=== PATIENT | male | born 1985 | race American Indian/Alaskan Native ===

== ENCOUNTER 2019-07-13 09:25 | Inpatient (IN) | payer MEDICARE ==
--- NOTE | 2019-07-13 09:10 | Event Note ---
Date: 07/13/19 Mr. Liriano arrived in preop for scheduled outpatient AVF placement. Upon arrival, he reported that he injured his left (nonoperative) elbow while pushing himself up out of the bathtub this morning. On exam, the left elbow is warm with significant swelling and possible fluid collection, with tenderness to palpation along the medial/posterior aspect of the joint. Flexion and extension ROM are restricted 2/2 pain. He denies head or other injury. He expressed concern that he would have difficulty with ADLs after surgery. Surgeon made aware and gave orders to send patient to ED for further evaluation and treatment of left arm injury. Surgery will be rescheduled.
[~2019-07-13 09:25] MED LIST: SODIUM CHLORIDE 0.9% 1000 ML 1,000 ML ONE; ceFAZolin/Water 2 GM/20 ML 2 GM/20 ML SYRINGE IV NR
[2019-07-13] MEDS ORDERED: ONDANSETRON 4 MG/2 ML INJ IV ONE (10:50)
[2019-07-13] MEDS ORDERED: MORPHINE 2 MG/1 ML INJ IV ONE ×2 (10:50→18:32)
[2019-07-13] MEDS ORDERED: VANCOMYCIN PHARMACY TO DOSE IV SCH (11:00)
--- NOTE | 2019-07-13 11:00 | Emergency Department Report ---
ED General Adult HPI - General Chief complaint: Extremity Injury, Upper Time Seen by Provider: 07/13/19 10:28 Source: patient, family, RN notes reviewed Mode of arrival: Stretcher Limitations: No Limitations - History of Present Illness Initial comments: 34-year-old male was sent from outpatient surgery for evaluation. He was scheduled to have an AV fistula placed. He has a permacath since January. He was transferred to the emergency department because he was found to have a warm, mass-like area of his left elbow. He states he felt a pop when he was getting out of the bathroom this morning. The swelling of his elbow has been there for several months or longer. He states he has never consulted a physician regarding this. Other than feeling the pop this morning he has no history of elbow trauma/injury. He denies a history of gout or other types of arthritis. He refers no other swollen joint area. He also denies fever or chills. He states that the elbow became more painful this morning after experiencing the "pop". The patient was sent from outpatient surgery for further evaluation. -: Gradual, month(s), year(s) Location: left (elbow) - Related Data Home Medications Medication Instructions Recorded Confirmed Last Taken Cardizem CD 300 mg PO DAILY 07/13/19 07/13/19 Unknown Cinacalcet 30 mg PO DAILY 07/13/19 07/13/19 Unknown Metoprolol Tartrate 100 mg PO DAILY 07/13/19 07/13/19 Unknown Sevelamer Carbonate 800 mg PO TID 07/13/19 07/13/19 Unknown Allergies Allergy/AdvReac Type Severity Reaction Status Date / Time No Known Allergies Allergy Unverified 07/09/19 16:30 ED Review of Systems ROS: Stated complaint: Other details as noted in HPI Constitutional: denies: chills, fever Eyes: denies: eye pain, eye discharge, vision change ENT: denies: ear pain, throat pain Respiratory: shortness of breath. denies: cough, wheezing Cardiovascular: denies: chest pain, palpitations Endocrine: no symptoms reported Gastrointestinal: denies: abdominal pain, nausea, diarrhea Genitourinary: denies: urgency, dysuria Musculoskeletal: as per HPI, joint swelling (elbow swelling). denies: back pain, arthralgia Skin: denies: rash, lesions Neurological: denies: headache, weakness, paresthesias Psychiatric: denies: anxiety, depression Hematological/Lymphatic: denies: easy bleeding, easy bruising ED Past Medical Hx - Past Medical History Previous Medical History?: Yes Hx Hypertension: Yes Hx Renal Disease: Yes Hx Headaches / Migraines: Yes - Surgical History Additional Surgical History: permacath - Social History Smoking Status: Former Smoker Substance Use Type: None - Medications Home Medications: Home Medications Medication Instructions Recorded Confirmed Last Taken Type Cardizem CD 300 mg PO DAILY 07/13/19 07/13/19 Unknown History Cinacalcet 30 mg PO DAILY 07/13/19 07/13/19 Unknown History Metoprolol Tartrate 100 mg PO DAILY 07/13/19 07/13/19 Unknown History Sevelamer Carbonate 800 mg PO TID 07/13/19 07/13/19 Unknown History ED Physical Exam - General Limitations: No Limitations General appearance: alert, in no apparent distress - Head Head exam: Present: atraumatic, normocephalic - Eye Eye exam: Present: normal appearance. Absent: scleral icterus - ENT ENT exam: Present: mucous membranes moist - Neck Neck exam: Present: normal inspection - Respiratory Respiratory exam: Present: normal lung sounds bilaterally. Absent: respiratory distress - Cardiovascular Cardiovascular Exam: Present: regular rate, normal rhythm. Absent: systolic murmur, diastolic murmur, rubs, gallop - GI/Abdominal GI/Abdominal exam: Present: soft, normal bowel sounds. Absent: distended, tenderness, guarding, rebound, rigid - Rectal Rectal exam: Present: deferred - Extremities Exam Extremities exam: Present: other (she has a firm soft tissue mass of the left elbow which does not appear to be in the olecranon bursa nor the joint. There is overlying erythema and warmth. There may be a slight degree of fluid colle ction but it is not grossly fluctuant.) - Back Exam Back exam: Present: normal inspection - Neurological Exam Neurological exam: Present: alert, oriented X3, CN II-XII intact. Absent: motor sensory deficit - Psychiatric Psychiatric exam: Present: normal affect, normal mood - Skin Skin exam: Present: warm, dry, intact, normal color. Absent: rash ED Course Vital Signs 07/13/19 07/13/19 07/13/19 08:38 08:40 09:20 Temperature 98.8 F 98.8 F Pulse Rate 97 H 97 H 98 H Respiratory 20 20 10 L Rate Blood Pressure 140/108 140/108 Blood Pressure [Right] O2 Sat by Pulse 99 99 Oximetry 07/13/19 07/13/19 07/13/19 09:30 09:45 10:00 Temperature Pulse Rate 98 H 100 H 101 H Respiratory 11 L 16 10 L Rate Blood Pressure 143/94 150/105 150/105 Blood Pressure [Right] O2 Sat by Pulse 99 99 98 Oximetry 07/13/19 07/13/19 07/13/19 10:07 10:15 10:30 Temperature 98.3 F Pulse Rate 98 H 103 H 101 H Respiratory 18 14 14 Rate Blood Pressure 143/94 157/102 157/102 Blood Pressure [Right] O2 Sat by Pulse 100 97 96 Oximetry 07/13/19 07/13/19 07/13/19 10:45 11:00 11:26 Temperature Pulse Rate 102 H 103 H Respiratory 15 10 L 18 Rate Blood Pressure 149/103 149/103 Blood Pressure [Right] O2 Sat by Pulse 96 Oximetry 07/13/19 07/13/19 07/13/19 11:38 12:14 12:16 Temperature Pulse Rate 103 H Respiratory 18 Rate Blood Pressure 147/86 Blood Pressure 157/115 [Right] O2 Sat by Pulse 99 94 94 Oximetry - Reevaluation(s) Reevaluation #1: Patient was given IV vancomycin. He is found to have a lactic acid level mildly elevated at 2.1. Blood cultures were obtained. He is referred to the hospitalist service for further care and evaluation. He was also found to have a questionable right upper lobe infiltrate, CHF and possibly an infected tophus of his left elbow. 07/13/19 12:59 Reevaluation #2: Lab notified of the delay in processing the previously ordered CBC and BMP. This was reordered and I called the lab. Patient will receive vancomycin and cefepime. 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 Other etiologies are certainly possible. The radiologist also has queried a right upper lobe infiltrate. I have consult wit h the employee placement specialist validation leader as the patient sees a employee placement specialist at [place]. His last dialysis was yesterday. He is resting comfortably. Patient is referred to the hospitalist Dr. Read for further care and evaluation. 07/13/19 13:10 ED Medical Decision Making - Lab Data Result diagrams: 07/13/19 Unknown Laboratory Results - last 24 hr 07/13/19 07/13/19 07/13/19 12:06 12:06 12:06 PT 15.3 H INR 1.19 H APTT 38.3 H Lactic Acid 2.10 H* Magnesium 1.90 Total Bilirubin 0.60 Direct Bilirubin 0.3 H Indirect Bilirubin 0.3 AST 18 ALT 11 Alkaline Phosphatase 241 H Total Protein 8.0 Albumin 3.2 L Albumin/Globulin Ratio 0.7 Laboratory Results - last 24 hr 07/13/19 07/13/19 07/13/19 12:06 12:06 12:06 PT 15.3 H INR 1.19 H APTT 38.3 H Lactic Acid 2.10 H* Magnesium 1.90 Total Bilirubin 0.60 Direct Bilirubin 0.3 H Indirect Bilirubin 0.3 AST 18 ALT 11 Alkaline Phosphatase 241 H Total Protein 8.0 Albumin 3.2 L Albumin/Globulin Ratio 0.7 - Radiology Data IMPRESSION: Cardiomegaly and pulmonary venous congestion. Possible right upper lobe infiltrate. Signer Name: Richmond Crawley Jr, MD Signed: 07/13/2019 11:26 AM Workstation Name: [id number] EFT ELBOW 3 VIEWS INDICATION: pain swelling. COMPARISON: None. IMPRESSION: There is a large amorphous soft tissue calcification posterior to the olecranon measuring up to 6 x 4 cm. The bony structures are intact with no significant degenerative changes. No fracture or large joint effusion is suggested. Tophaceous gout Chronic calcific olecranon bursitis Critical care attestation.: If time is entered above; I have spent that time in minutes in the direct care of this critically ill patient, excluding procedure time. ED Disposition Clinical Impression: Soft tissue infection, End-stage renal disease needing dialysis, Right upper lobe pulmonary infiltrate Congestive heart failure Qualifiers: Heart failure type: other Qualified Code(s): I50.9 - Heart failure, unspecified Disposition: - OP ADMIT IP TO THIS HOSP Is pt being admited?: Yes Does the pt Need Aspirin: Yes Condition: Stable Referrals: PRIMARY CARE, [Primary Care Provider] - 3-5 Days Time of Disposition: 13:12
--- NOTE | 2019-07-13 11:33 | XRay Report ---
CHEST 1 VIEW INDICATION: pain swelling. COMPARISON: None FINDINGS: Support devices: Right IJ venous catheter terminates in the right atrium. Heart: Cardiomegaly. Lungs/Pleura: Mild central pulmonary venous congestion. There is subtle hazy opacity in the lateral r ight upper lobe which could represent a developing infiltrate or focal edema. 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 IMPRESSION: Cardiomegaly and pulmonary venous congestion. Possible right upper lobe infiltrate. Signer Name: Richmond Crawley Jr, MD Signed: 07/13/2019 11:26 AM Workstation Name: [id number] EFT ELBOW 3 VIEWS INDICATION: pain swelling. COMPARISON: None. IMPRESSION: There is a large amorphous soft tissue calcification posterior to the olecranon measurin g up to 6 x 4 cm. The bony structures are intact with no significant degenerative changes. No fractur e or large joint effusion is suggested. Tophaceous gout Chronic calcific olecranon bursitis Signer Name: Richmond Crawley Jr, MD Signed: 07/13/2019 11:28 AM Workstation Name: [id number]
--- NOTE | 2019-07-13 11:33 | XRay Report ---
CHEST 1 VIEW INDICATION: pain swelling. COMPARISON: None FINDINGS: Support devices: Right IJ venous catheter terminates in the right atrium. Heart: Cardiomegaly. Lungs/Pleura: Mild central pulmonary venous congestion. There is subtle hazy opacity in the lateral r ight upper lobe which could represent a developing infiltrate or focal edema. 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 IMPRESSION: Cardiomegaly and pulmonary venous congestion. Possible right upper lobe infiltrate. Signer Name: Richmond Crawley Jr, MD Signed: 07/13/2019 11:26 AM Workstation Name: [id number] EFT ELBOW 3 VIEWS INDICATION: pain swelling. COMPARISON: None. IMPRESSION: There is a large amorphous soft tissue calcification posterior to the olecranon measurin g up to 6 x 4 cm. The bony structures are intact with no significant degenerative changes. No fractur e or large joint effusion is suggested. Tophaceous gout Chronic calcific olecranon bursitis Signer Name: Richmond Crawley Jr, MD Signed: 07/13/2019 11:28 AM Workstation Name: [id number]
[2019-07-13] MEDS ORDERED: diphenhydrAMINE 50 MG/ML VIAL ONE (11:34)
[2019-07-13] MEDS ORDERED: VANCOMYCIN 1,750 MG in SODIUM CHLORIDE 0.9% 500 ML 500 ML IV ONE (12:00)
[2019-07-13 12:29] LABS: INR 1.19 (0.87-1.13); Partial Thromboplastin Time 38.3 Sec. (24.2-36.6)
[2019-07-13 12:48] LABS: Alanine Aminotransferase 11 units/L (7-56); Albumin 3.2 g/dL (3.9-5); Bilirubin,Direct 0.3 mg/dL (0-0.2)
[2019-07-13 13:07] LABS: Calcium 10.8 mg/dL (8.4-10.2)
[2019-07-13] MEDS ORDERED: CEFEPIME/NS 1 GM/100 ML 1 GM/100 ML BAG IV ONE (13:09)
[2019-07-13 13:50] LABS: Basophils % (Auto) 0.7 % (0.0-1.8); Eosinophils % (Auto) 0.2 % (0.0-4.3); Hematocrit 32.8 % (35.5-45.6); Hemoglobin 10.1 gm/dl (11.8-15.2); Lymphocytes # (Auto) 0.9 K/mm3 (1.2-5.4); Lymphocytes % (Auto) 12.7 % (13.4-35.0); Mean Corpuscular HGB Conc 31 % (32-34); Mean Corpuscular Volume 81 fl (84-94); Monocytes # (Auto) 0.6 K/mm3 (0.0-0.8); Monocytes % (Auto) 8.9 % (0.0-7.3); Platelet Count 357 K/mm3 (140-440); Red Blood Count 4.05 M/mm3 (3.65-5.03); Red Cell Distribution Width 21.4 % (13.2-15.2)
--- NOTE | 2019-07-13 13:53 | History and Physical Report ---
History of Present Illness Chief complaint: My arm popped History of present illness: 34-year-old male with end-stage renal disease on hemodialysis, hypertension, migraine headache, presents to ED for evaluation. Patient states that he heard a sudden pop in his left elbow this morning while getting out of the shower. Patient states that he shortly thereafter felt pain in his left elbow. Patient presented to outpatient surgery for permacatheter placement and was found to have left elbow swelling and tenderness and was instructed to seek further care at [facility] ED. Patient seen and evaluated in the emergency department. Lab and imaging studies reviewed. Patient found to have end-stage renal disease, metabolic acidosis, left elbow cellulitis, as well as right upper lobe pneumonia. Patient admitted to medical floor for medical stabilization due to increased risk of decompensation. Patient initiated on pneumonia protocol. Nephrology consulted in ED for urgent dialysis. Orthopedic surgery consulted in ED for left elbow cellulitis. Patient denies fever, chills, chest pain, palpitations, shortness of breath, bright red blood per rectum, productive cough, recent ill contacts, trauma to his left arm or elbow. No prior admission for review. All listed medication reconciled at time of admission. Past History Past Medical History: ESRD, hypertension, migraines, other (See HPI) Past Surgical History: Other (Permacath placement) Social history: single. denies: smoking, alcohol abuse, prescription drug abuse Family history: hypertension Medications and Allergies Allergies Allergy/AdvReac Type Severity Reaction Status Date / Time No Known Allergies Allergy Unverified 07/09/19 16:30 Home Medications Medication Instructions Recorded Confirmed Last Taken Type Cardizem CD 300 mg PO DAILY 07/13/19 07/13/19 Unknown History Cinacalcet 30 mg PO DAILY 07/13/19 07/13/19 Unknown History Metoprolol Tartrate 100 mg PO DAILY 07/13/19 07/13/19 Unknown History Sevelamer Carbonate 800 mg PO TID 07/13/19 07/13/19 Unknown History Active Meds: Active Medications Vancomycin HCl 1,750 mg/ (Sodium Chloride) 535 mls @ 267.5 mls/hr IV ONCE ONE Stop: 07/13/19 13:59 Last Admin: 07/13/19 13:13 Dose: 267.5 mls/hr Documented by: Review of Systems Constitutional: no weight loss, no weight gain, no fever, no chills Ears, nose, mouth and throat: no ear pain, no ear discharge, no tinnitis, no decreased hearing, no nose pain, no nasal congestion Cardiovascular: no chest pain, no orthopnea, no palpitations, no rapid/irregular heart beat, no edema, no lightheadedness Respiratory: no cough, no cough with sputum, no excessive sputum, no hemoptysis, no shortness of breath Gastrointestinal: no nausea, no vomiting, no diarrhea, no constipation, no change in bowel habits Genitourinary Male: no hematuria, no flank pain, no discharge, no urinary frequency, no urinary hesitancy, no nocturia Rectal: no pain, no incontinence, no bleeding Musculoskeletal: no neck stiffness, no neck pain, no shooting arm pain, no arm numbness/tingling, no low back pain, no shooting leg pain Integumentary: no rash, no pruritis, no redness, no sores, no wounds Neurological: no transient paralysis, no paralysis, no weakness, no parathesias, no numbness, no tingling, no syncope Psychiatric: no anxiety, no change in sleep habits, no insomnia, no hypersomnia, no suicidal ideation, no hallucinations, no hopelessness, no sadness/tearfullness Endocrine: no excessive thirst, no polydipsia, no polyuria, no excessive sweating, no thyroid mass, no palpatations Hematologic/Lymphatic: no easy bruising, no easy bleeding, no lymphadenopathy, no lymphedema Allergic/Immunologic: no urticaria, no allergic rhinitis, no angioedema Exam - Constitutional Vitals: Temp Pulse Resp BP Pulse Ox 98.3 F 103 H 18 147/86 94 07/13/19 10:07 07/13/19 11:38 07/13/19 11:38 07/13/19 12:16 07/13/19 12:16 General appearance: Present: mild distress - EENT Eyes: Present: PERRL ENT: hearing intact, clear oral mucosa - Neck Neck: Present: supple, normal ROM - Respiratory Respiratory effort: normal Respiratory: bilateral: CTA - Cardiovascular Heart Sounds: Present: S1 & S2. Absent: rub, click - Extremities Extremities: pulses symmetrical, No edema Extremity abnormal: other (Left elbow fluctuant mass) Peripheral Pulses: within normal limits - Abdominal General gastrointestinal: Present: soft, non-tender, non-distended, normal bowel sounds Male genitourinary: Present: normal - Integumentary Integumentary: Present: clear, warm, dry - Musculoskeletal Musculoskeletal: gait normal, strength equal bilaterally - Psychiatric Psychiatric: appropriate mood/affect, intact judgment & insight - Neurologic Neurologic: CNII-XII intact, moves all extremities Results - Labs CBC & Chem 7: 07/13/19 13:11 07/13/19 Unknown Labs: Abnormal lab results 07/13/19 07/13/19 07/13/19 Range/Units 12:06 12:06 12:06 Hgb (11.8-15.2) gm/dl Hct (35.5-45.6) % MCV (84-94) fl MCH (28-32) pg MCHC (32-34) % RDW (13.2-15.2) % Lymph % (Auto) (13.4-35.0) % Tripp % (Auto) (0.0-7.3) % Lymph # (1.2-5.4) K/mm3 Seg Neutrophils % (40.0-70.0) % PT 15.3 H (12.2-14.9) Sec. INR 1.19 H (0.87-1.13) APTT 38.3 H (24.2-36.6) Sec. Chloride (98-107) mmol/L BUN (9-20) mg/dL Creatinine (0.8-1.5) mg/dL Glucose (75-100) mg/dL Lactic Acid 2.10 H* (0.7-2.0) mmol/L Calcium (8.4-10.2) mg/dL Direct Bilirubin 0.3 H (0-0.2) mg/dL Alkaline Phosphatase 241 H (35-129) units/L Albumin 3.2 L (3.9-5) g/dL 07/13/19 07/13/19 Range/Units 13:11 Unknown Hgb 10.1 L (11.8-15.2) gm/dl Hct 32.8 L (35.5-45.6) % MCV 81 L (84-94) fl MCH 25 L (28-32) pg MCHC 31 L (32-34) % RDW 21.4 H (13.2-15.2) % Lymph % (Auto) 12.7 L (13.4-35.0) % Tripp % (Auto) 8.9 H (0.0-7.3) % Lymph # 0.9 L (1.2-5.4) K/mm3 Seg Neutrophils % 77.5 H (40.0-70.0) % PT (12.2-14.9) Sec. INR (0.87-1.13) APTT (24.2-36.6) Sec. Chloride 93.4 L (98-107) mmol/L BUN 44 H (9-20) mg/dL Creatinine 6.9 H (0.8-1.5) mg/dL Glucose 104 H (75-100) mg/dL Lactic Acid (0.7-2.0) mmol/L Calcium 10.8 H (8.4-10.2) mg/dL Direct Bilirubin (0-0.2) mg/dL Alkaline Phosphatase (35-129) units/L Albumin (3.9-5) g/dL Assessment and Plan - Patient Problems (1) Right upper lobe pneumonia Current Visit: Yes Status: Acute Plan to address problem: Pneumonia protocol: Chest x-ray, IV antibiotic therapy, IV fluid resuscitation therapy, nebulizer therapy, pulse oximetry, supplemental oxygen, blood cultures, CBC, CMP, pulmonary toilet. (2) End stage renal disease Current Visit: Yes Status: Acute Plan to address problem: Nephrology consulted in ED, strict I's/O, daily weight, monitor urine output every shift, dialysis as per renal team (3) Cellulitis of left elbow Current Visit: Yes Status: Acute Plan to address problem: IV antibiotic therapy, CBC, CMP, elbow x-ray. Orthopedic surgery consulted (4) DVT prophylaxis Current Visit: Yes Status: Acute Plan to address problem: SCD to bilateral lower extremities while in bed, patient is ambulatory
[2019-07-13] MEDS ORDERED: ONDANSETRON 4 MG/2 ML INJ IV PRN (13:54)
[2019-07-13] MEDS ORDERED: SEVELAMER CARBONATE 800 MG PO SCH (14:00)
[2019-07-13] MEDS ORDERED: diphenhydrAMINE 50 MG/ML VIAL IV ONE (14:00)
[2019-07-13 14:20] LABS: Hepatitis B Surface Antigen Non-Reactive (Negative); Hepatitis C Virus Antibody Non-Reactive (NonReactive)
[2019-07-13] MEDS ORDERED: ACETAMINOPHEN 325 MG TAB ONE (14:49)
[2019-07-13] MEDS: ACETAMINOPHEN 325 MG TAB PO PRN ×2 (14:50→17:07)
--- NOTE | 2019-07-13 15:46 | Consultation ---
History of Present Illness - History of Present Illness 34-year-old gentleman with medical history significant for polycystic kidney disease end stage renal disease on hemodialysis Tuesday at the with Dr. Homa Rodriguez a right IJ PermCath admitted for AV graft placements however while found to have left elbow swelling concern for infected cyst patient is being admitted nephrology was consulted for dialysis reports last dialysis was denies any shortness of breath denies any Lower extremity edema continues to make urine he denies any fevers chills reports his father is on dialysis Medications and Allergies Allergies Allergy/AdvReac Type Severity Reaction Status Date / Time No Known Allergies Allergy Unverified 07/09/19 16:30 Home Medications Medication Instructions Recorded Confirmed Last Taken Type Cardizem CD 300 mg PO DAILY 07/13/19 07/13/19 Unknown History Cinacalcet 30 mg PO DAILY 07/13/19 07/13/19 Unknown History Metoprolol Tartrate 100 mg PO DAILY 07/13/19 07/13/19 Unknown History Sevelamer Carbonate 800 mg PO TID 07/13/19 07/13/19 Unknown History Active Meds: Active Medications Acetaminophen (Tylenol) 650 mg PO Q4H PRN PRN Reason: Pain MILD(1-3)/Fever >100.5/ROBERTS Last Admin: 07/13/19 14:50 Dose: 650 mg Documented by: Cinacalcet (Sensipar) 30 mg PO QDAY [facility] Diltiazem HCl (Cardizem Cd) 300 mg PO QDAY [facility] Ceftriaxone Sodium (Rocephin/Ns 2 Gm/100 Ml) 2 gm in 100 mls @ 200 mls/hr IV Q24HR [facility]; Protocol Azithromycin 500 mg/ Sodium (Chloride) 250 mls @ 250 mls/hr IV Q24HR [facility]; Protocol Stop: 07/17/19 10:59 Metoprolol Succinate (Metoprolol Xl) 100 mg PO QDAY [facility] Ondansetron HCl (Zofran) 4 mg IV Q8H PRN PRN Reason: Nausea And Vomiting Sevelamer Carbonate (Renvela) 800 mg PO TIDWM [facility] Sodium Chloride (Sodium Chloride Flush Syringe 10 Ml) 10 ml IV BID JENNIFER Sodium Chloride (Sodium Chloride Flush Syringe 10 Ml) 10 ml IV PRN PRN PRN Reason: LINE FLUSH Review of Systems Constitutional: no weight loss, no weight gain, no fever Ears, nose, mouth and throat: no deferred, no ear pain, no ear discharge Cardiovascular: no chest pain, no orthopnea, no palpitations Respiratory: no cough, no cough with sputum Gastrointestinal: no abdominal pain, no nausea, no vomiting Genitourinary Male: no dysuria, no hematuria, no flank pain Musculoskeletal: no neck stiffness, no neck pain, no shooting arm pain Integumentary: no deferred, no rash, no pruritis Neurological: no head injury, no transient paralysis Psychiatric: no anxiety, no memory loss, no change in sleep habits Endocrine: no cold intolerance, no heat intolerance Hematologic/Lymphatic: no easy bruising, no easy bleeding Exam - Vital Signs Vital signs: Vital Signs Temp Pulse Resp BP Pulse Ox 98.8 F 97 H 20 140/108 99 07/13/19 08:38 07/13/19 08:38 07/13/19 08:38 07/13/19 08:38 07/13/19 08:38 - General Appearance General appearance: well-developed, well-nourished EENT: ATNC, PERRL, mucous membranes moist Neck: Present: neck supple Respiratory: Clear to Ascultation Heart: regular, S1S2 Gastrointestinal: Present: normal, normoactive bowel sounds Integumentary: no rash Neurologic: alert and oriented x3, CN 3-12 intact Psychiatric: mood/affect appropriate Results - Lab Results 07/13/19 13:11 07/13/19 Unknown Most recent lab results Calcium 10.8 mg/dL (8.4-10.2) H 07/13/19 Unknown Magnesium 1.90 mg/dL (1.7-2.3) 07/13/19 12:06 - Image Kidney/bladder ultrasound: other (reviewed chest x-ray with some pulmonary congestion) Assessment and Plan - Patient Problems (1) Congestive heart failure Current Visit: Yes Status: Acute Qualifiers: Heart failure type: other Qualified Code(s): I50.9 - Heart failure, unspecified Plan to address problem: Congestive heart failure We'll initiate ultrafiltration with dialysis Obtainechocardiogram (2) End-stage renal disease needing dialysis Current Visit: Yes Status: Acute Plan to address problem: End-stage renal disease We'll initiate dialysis in the a.m. Ultrafiltration goal 3 L (3) Right upper lobe pulmonary infiltrate Current Visit: Yes Status: Acute Plan to address problem: Right upper lobe infiltrate has been started on broad-spectrum antibiotics (4) Anemia Current Visit: Yes Status: Acute Plan to address problem: Mild anemia Hemoglobin 10.1 g per DL Monitor CBC
[2019-07-13] MEDS: SEVELAMER CARBONATE 800 MG TAB PO SCH (17:07)
[2019-07-13] MEDS: CINACALCET 30 MG TAB PO SCH (17:07)
[2019-07-13] MEDS: METOPROLOL SUCCINATE XL 100 MG TAB PO SCH (17:07)
[2019-07-13] MEDS: dilTIAZem CD 300 MG CAP PO SCH (18:21)
[2019-07-13] MEDS: AZITHROMYCIN 500 MG in SODIUM CHLORIDE 0.9% 250ML 250 ML IV SCH (18:23)
[2019-07-13] MEDS: cefTRIAXone/NS 2 GM/100 ML 2 GM/100 ML BAG IV SCH (18:23)
[2019-07-13] MEDS ORDERED: oxyCODONE /ACETAMINOPHEN 5-325MG TAB PO PRN (18:31)
[2019-07-14] MEDS: ACETAMINOPHEN 325 MG TAB PO PRN (02:00)
[2019-07-14] MEDS: SEVELAMER CARBONATE 800 MG TAB PO SCH ×3 (08:53→19:22)
[2019-07-14] MEDS ORDERED: NON-FORMULARY EACH (Cinacalcet 30 MG) PO SCH (10:00)
[2019-07-14] MEDS ORDERED: METOPROLOL TARTRATE 100 MG PO SCH (10:00)
[2019-07-14] MEDS ORDERED: DILTIAZEM 300 MG PO SCH (10:00)
[2019-07-14] MEDS: cefTRIAXone/NS 2 GM/100 ML 2 GM/100 ML BAG IV SCH (10:41)
[2019-07-14] MEDS: AZITHROMYCIN 500 MG in SODIUM CHLORIDE 0.9% 250ML 250 ML IV SCH (10:41)
[2019-07-14] MEDS: CINACALCET 30 MG TAB PO SCH (10:42)
[2019-07-14] MEDS: METOPROLOL SUCCINATE XL 100 MG TAB PO SCH (10:42)
--- NOTE | 2019-07-14 11:42 | Progress Note ---
Assessment and Plan Assessment and plan: 34-year-old male with end-stage renal disease on hemodialysis, hypertension, migraine headache, presents to ED for evaluation. Patient states that he heard a sudden pop in his left elbow this morning while getting out of the shower. Patient states that he shortly thereafter felt pain in his left elbow. Patient presented to outpatient surgery for permacatheter placement and was found to have left elbow swelling and tenderness and was instructed to seek further care at [facility] ED. Patient seen and evaluated in the emergency department. Lab and imaging studies reviewed. Patient found to have end-stage renal disease, metabolic acidosis, left elbow cellulitis, as well as right upper lobe pneumonia. Patient admitted to medical floor for medical stabilization due to increased risk of decompensation. Patient initiated on pneumonia protocol. Nephrology consulted in ED for urgent dialysis. Orthopedic surgery consulted in ED for left elbow cellulitis. Patient denies fever, chills, chest pain, p alpitations, shortness of breath, bright red blood per rectum, productive cough, recent ill contacts, trauma to his left arm or elbow. No prior admission for review. All listed medication reconciled at time of admission. - Radiology Data IMPRESSION: Cardiomegaly and pulmonary venous congestion. Possible right upper lobe infiltrate. Imaging study of upper extremity IMPRESSION: There is a large amorphous soft tissue calcification posterior to the olecranon measuring up to 6 x 4 cm. The bony structures are intact with no significant degenerative changes. No fracture or large joint effusion is suggested. Tophaceous gout Chronic calcific olecranon bursitis Assessment Sepsis present on admission secondary to pneumonia Left elbow cellulitis of abscess- likely gout or bursitis End stage renal disease Acute congestive heart failure likely systolic Polycystic Kidney diesease on HD TTS Anemia of Chronic Renal Failure Plan Supportive care Noted resoluation of lactic acidosis Continue abx and follow culture result Nephrology input noted, will follow Echo Repeat chest x-ray in a.m. to see if improvement in infiltrates vspulmonary venous congestion the results of missed dialysis Ortho consulted and pending Warm compress to elbow area DVT/GI prophy History Interval history: Patient seen and examined, reports left elbow mass for the past 2 months but got more tender on date of admission. No drainage. Hospitalist Physical - Physical exam Narrative exam: VITAL SIGNS: Reviewed. GENERAL: The patient appears normally developed, Vital signs as documented. HEAD: No signs of head trauma. EYES: Pupils are equal. Extraocular motions intact. EARS: Hearing grossly intact. MOUTH: Oropharynx is normal. NECK: No adenopathy, no JVD. CHEST: Chest with clear breath sounds bilaterally. No wheezes, rales, or rhonchi. CARDIAC: Regular rate and rhythm. S1 and S2, without murmurs, gallops, or rubs. VASCULAR: No Edema. Peripheral pulses normal and equal in all extremities. ABDOMEN: Soft, non tender and non distended. No rebound or guarding, and no masses palpated. Bowel Sounds normal. MUSCULOSKELETAL: Left elbow abscess. Limited left elbow ROM. Good range of motion of all major joints. Extremities without clubbing, cyanosis or edema. NEUROLOGIC EXAM: Alert and oriented x 3 No focal sensory or strength deficits. Speech normal. Follows commands. PSYCHIATRIC: Mood normal. SKIN: detail exam as documented in skin assessment - Constitutional Vitals: Temp Pulse Resp BP Pulse Ox 98.4 F 107 H 17 125/86 96 07/14/19 06:03 07/14/19 06:03 07/14/19 06:03 07/14/19 06:03 07/14/19 06:03 General appearance: Present: mild distress Results - Labs CBC & Chem 7: 07/13/19 13:11 07/13/19 Unknown Labs: Laboratory Last Values WBC 7.1 K/mm3 (4.5-11.0) 07/13/19 13:11 RBC 4.05 M/mm3 (3.65-5.03) 07/13/19 13:11 Hgb 10.1 gm/dl (11.8-15.2) L 07/13/19 13:11 Hct 32.8 % (35.5-45.6) L 07/13/19 13:11 MCV 81 fl (84-94) L 07/13/19 13:11 MCH 25 pg (28-32) L 07/13/19 13:11 MCHC 31 % (32-34) L 07/13/19 13:11 RDW 21.4 % (13.2-15.2) H 07/13/19 13:11 Plt Count 357 K/mm3 (140-440) 07/13/19 13:11 Lymph % (Auto) 12.7 % (13.4-35.0) L 07/13/19 13:11 [place] % (Auto) 8.9 % (0.0-7.3) H 07/13/19 13:11 Eos % (Auto) 0.2 % (0.0-4.3) 07/13/19 13:11 Baso % (Auto) 0.7 % (0.0-1.8) 07/13/19 13:11 Lymph # 0.9 K/mm3 (1.2-5.4) L 07/13/19 13:11 [place] # 0.6 K/mm3 (0.0-0.8) 07/13/19 13:11 Eos # 0.0 K/mm3 (0.0-0.4) 07/13/19 13:11 Baso # 0.0 K/mm3 (0.0-0.1) 07/13/19 13:11 Seg Neutrophils % 77.5 % (40.0-70.0) H 07/13/19 13:11 Seg Neutrophils # 5.5 K/mm3 (1.8-7.7) 07/13/19 13:11 PT 15.3 Sec. (12.2-14.9) H 07/13/19 12:06 INR 1.19 (0.87-1.13) H 07/13/19 12:06 APTT 38.3 Sec. (24.2-36.6) H 07/13/19 12:06 Sodium 138 mmol/L (137-145) 07/13/19 Unknown Potassium 4.5 mmol/L (3.6-5.0) 07/13/19 Unknown Chloride 93.4 mmol/L (98-107) L 07/13/19 Unknown Carbon Dioxide 24 mmol/L (22-30) 07/13/19 Unknown Anion Gap 25 mmol/L 07/13/19 Unknown BUN 44 mg/dL (9-20) H 07/13/19 Unknown Creatinine 6.9 mg/dL (0.8-1.5) H 07/13/19 Unknown Estimated GFR 11 ml/min 07/13/19 Unknown BUN/Creatinine Ratio 6 % 07/13/19 Unknown Glucose 104 mg/dL (75-100) H 07/13/19 Unknown Lactic Acid 1.80 mmol/L (0.7-2.0) 07/14/19 06:51 Calcium 10.8 mg/dL (8.4-10.2) H 07/13/19 Unknown Magnesium 1.90 mg/dL (1.7-2.3) 07/13/19 12:06 Total Bilirubin 0.60 mg/dL (0.1-1.2) 07/13/19 12:06 Direct Bilirubin 0.3 mg/dL (0-0.2) H 07/13/19 12:06 Indirect Bilirubin 0.3 mg/dL 07/13/19 12:06 AST 18 units/L (5-40) 07/13/19 12:06 ALT 11 units/L (7-56) 07/13/19 12:06 Alkaline Phosphatase 241 units/L (35-129) H 07/13/19 12:06 NT-Pro-B Natriuret Pep > 55568 pg/mL (0-450) H 07/13/19 12:06 Total Protein 8.0 g/dL (6.3-8.2) 07/13/19 12:06 Albumin 3.2 g/dL (3.9-5) L 07/13/19 12:06 Albumin/Globulin Ratio 0.7 % 07/13/19 12:06 Hepatitis A IgM Ab Non-reactive (NonReactive) 07/13/19 12:06 Hep Bs Antigen Non-reactive (Negative) 07/13/19 12:06 Hep B Core IgM Ab Non-reactive (NonReactive) 07/13/19 12:06 Hepatitis C Antibody Non-reactive (NonReactive) 07/13/19 12:06 Active Medications - Current Medications Current Medications: Generic Name Dose Route Start Last Admin Trade Name Freq PRN Reason Stop Dose Admin Acetaminophen 650 mg 07/13/19 13:54 07/14/19 02:00 Tylenol PO 650 mg Q4H PRN Administration Pain MILD(1-3)/Fever >100.5/ROBERTS Cinacalcet 30 mg 07/13/19 16:00 07/14/19 10:42 Sensipar PO 30 mg QDAY JENNIFER Administration Diltiazem HCl 300 mg 07/13/19 16:00 07/13/19 18:21 Cardizem Cd PO 300 mg QDAY JENNIFER Administration Ceftriaxone Sodium 2 gm in 100 mls @ 200 mls/hr 07/13/19 16:00 07/14/19 10:41 Rocephin/Ns 2 Gm/100 Ml IV 200 mls/hr Q24HR JENNIFER Administration Protocol Azithromycin 500 mg/ Sodium 250 mls @ 250 mls/hr 07/13/19 16:00 07/14/19 10:41 Chloride IV 07/17/19 10:59 250 mls/hr Q24HR JENNIFER Administration Protocol Metoprolol Succinate 100 mg 07/13/19 16:00 07/14/19 10:42 Metoprolol Xl PO 100 mg QDAY JENNIFER Administration Ondansetron HCl 4 mg 07/13/19 13:54 Zofran IV Q8H PRN Nausea And Vomiting Oxycodone/Acetaminophen 1 tab 07/13/19 18:31 Percocet 5/325 PO Q6H PRN Pain, Moderate (4-6) Sevelamer Carbonate 800 mg 07/13/19 17:00 07/14/19 08:53 Renvela PO 800 mg TIDWM JENNIFER Administration Sodium Chloride 10 ml 07/13/19 22:00 07/14/19 10:43 Sodium Chloride Flush Syringe 10 Ml IV 10 ml BID JENNIFER Administration Sodium Chloride 10 ml 07/13/19 13:54 Sodium Chloride Flush Syringe 10 Ml IV PRN PRN LINE FLUSH
[2019-07-14] MEDS: dilTIAZem CD 300 MG CAP PO SCH (11:53)
[2019-07-14] MEDS ORDERED: COLCHICINE 0.6 MG CAP PO SCH ×2 (13:18→22:00)
[2019-07-14] MEDS ORDERED: predniSONE 20 MG TAB PO NR (14:00)
[2019-07-14] MEDS ORDERED: CEFEPIME/NS 1 GM/100 ML 1 GM/100 ML BAG IV SCH (14:00)
--- NOTE | 2019-07-14 16:23 | Progress Note ---
Assessment and Plan Impression: * End stage renal disease secondary to polycystic kidney disease * PNA, right upper lobe * Cellulitis, left elbow * Lactic acidosis * Hypertension * Secondary hyperparathyroidism * Anemia secondary to ESRD Plan: * Hemodialysis today * Continue TTS schedule * UF as tolerated * Abx per primary team * Epogen TIW prn * Renal diet * Dose medications for renal function Subjective Date of service: 07/14/19 Interval history: Patient seen on dialysis. He has no complaints. Objective - Vital Signs Vital signs: Vital Signs - 12hr 07/14/19 07/14/19 07/14/19 06:03 15:10 15:20 Temperature 98.4 F 98.4 F Pulse Rate 107 H 102 H 100 H Respiratory 17 18 Rate Blood Pressure 125/86 141/85 148/91 O2 Sat by Pulse 96 Oximetry 07/14/19 07/14/19 15:30 15:45 Temperature Pulse Rate 100 H 99 H Respiratory Rate Blood Pressure 146/87 145/81 O2 Sat by Pulse Oximetry - General Appearance General appearance: well-developed, well-nourished EENT: ATNC Respiratory: Present: Clear to Ascultation Cardiology: regular, S1S2 Gastrointestinal: normal Integumentary: no rash, warm and dry Neurologic: no focal deficit, alert and oriented x3 Psychiatric: cooperative - Lab 07/13/19 13:11 07/13/19 Unknown Most recent lab results Calcium 10.8 mg/dL (8.4-10.2) H 07/13/19 Unknown Magnesium 1.90 mg/dL (1.7-2.3) 07/13/19 12:06 Medications & Allergies - Medications Allergies/Adverse Reactions: Allergies No Known Allergies Allergy (Unverified 07/09/19 16:30) Home Medications: Home Medications Medication Instructions Recorded Confirmed Last Taken Type Cardizem CD 300 mg PO DAILY 07/13/19 07/13/19 Unknown History Cinacalcet 30 mg PO DAILY 07/13/19 07/13/19 Unknown History Metoprolol Tartrate 100 mg PO DAILY 07/13/19 07/13/19 Unknown History Sevelamer Carbonate 800 mg PO TID 07/13/19 07/13/19 Unknown History Active Medications: Generic Name Dose Route Start Last Admin Trade Name Freq PRN Reason Stop Dose Admin Acetaminophen 650 mg 07/13/19 13:54 07/14/19 02:00 Tylenol PO 650 mg Q4H PRN Administration Pain MILD(1-3)/Fever >100.5/ROBERTS Cinacalcet 30 mg 07/13/19 16:00 07/14/19 10:42 Sensipar PO 30 mg QDAY JENNIFER Administration Diltiazem HCl 300 mg 07/13/19 16:00 07/14/19 11:53 Cardizem Cd PO 300 mg QDAY JENNIFER Administration Cefepime HCl 1 gm in 100 mls @ 200 mls/hr 07/14/19 14:00 Cefepime/Ns 1 Gm/100 Ml IV Q24H [facility] Protocol Metoprolol Succinate 100 mg 07/13/19 16:00 07/14/19 10:42 Metoprolol Xl PO 100 mg QDAY JENNIFER Administration Ondansetron HCl 4 mg 07/13/19 13:54 Zofran IV Q8H PRN Nausea And Vomiting Oxycodone/Acetaminophen 1 tab 07/13/19 18:31 Percocet 5/325 PO Q6H PRN Pain, Moderate (4-6) Prednisone 20 mg 07/14/19 14:00 07/14/19 14:00 Deltasone PO 07/14/19 23:00 20 mg ONCE NR Administration Sevelamer Carbonate 800 mg 07/13/19 17:00 07/14/19 11:53 Renvela PO 800 mg TIDWM JENNIFER Administration Sodium Chloride 10 ml 07/13/19 22:00 07/14/19 10:43 Sodium Chloride Flush Syringe 10 Ml IV 10 ml BID JENNIFER Administration Sodium Chloride 10 ml 07/13/19 13:54 Sodium Chloride Flush Syringe 10 Ml IV PRN PRN LINE FLUSH
[2019-07-15 07:22] LABS: Hematocrit 35.2 % (35.5-45.6); Hemoglobin 11.1 gm/dl (11.8-15.2); Mean Corpuscular HGB Conc 32 % (32-34); Mean Corpuscular Volume 80 fl (84-94); Platelet Count 439 K/mm3 (140-440); Red Blood Count 4.41 M/mm3 (3.65-5.03)
[2019-07-15 07:37] LABS: Calcium 10.9 mg/dL (8.4-10.2)
[2019-07-15 07:38] LABS: Red Cell Distribution Width 21.5 % (13.2-15.2)
--- NOTE | 2019-07-15 08:13 | XRay Report ---
CHEST 1 VIEW 0719 INDICATION / CLINICAL INFORMATION: pneumonia. COMPARISON: 07/13/2019 FINDINGS: SUPPORT DEVICES: Stable HEART / MEDIASTINUM: Stable LUNGS / PLEURA: Patchy infiltrate in the right upper lobe is more obvious. There also appears to be m ild patchy infiltrate in the left upper lobe which is more prominent. No basilar infiltrates are seen . Pulmonary vascularity appears within normal limits. No pneumothorax. ADDITIONAL FINDINGS: No significant additional findings. IMPRESSION: Worsening bilateral upper lobe pneumonitis Signer Name: Pk Morse MD Signed: 07/15/2019 8:09 AM Workstation Name: [id number]
--- NOTE | 2019-07-15 09:23 | Consultation ---
History of Present Illness - HPI Consult date: 07/15/19 Consult reason: joint pain History of present illness: A 34-year-old male who complains of left elbow swelling and no pain. She states swelling present for the Past 2 months patient denies a history of trauma does admits to history of gout Past History Past Medical History: ESRD, hypertension, migraines, other (See HPI) Past Surgical History: Other (Permacath placement) Social history: single. denies: smoking, alcohol abuse, prescription drug abuse Family history: hypertension Medications and Allergies Allergies Allergy/AdvReac Type Severity Reaction Status Date / Time No Known Allergies Allergy Unverified 07/09/19 16:30 Home Medications Medication Instructions Recorded Confirmed Last Taken Type Cardizem CD 300 mg PO DAILY 07/13/19 07/13/19 Unknown History Cinacalcet 30 mg PO DAILY 07/13/19 07/13/19 Unknown History Metoprolol Tartrate 100 mg PO DAILY 07/13/19 07/13/19 Unknown History Sevelamer Carbonate 800 mg PO TID 07/13/19 07/13/19 Unknown History Active Meds: Active Medications Acetaminophen (Tylenol) 650 mg PO Q4H PRN PRN Reason: Pain MILD(1-3)/Fever >100.5/ROBERTS Last Admin: 07/14/19 02:00 Dose: 650 mg Documented by: Cinacalcet (Sensipar) 30 mg PO QDAY [facility] Last Admin: 07/14/19 10:42 Dose: 30 mg Documented by: Diltiazem HCl (Cardizem Cd) 300 mg PO QDAY [facility] Last Admin: 07/14/19 11:53 Dose: 300 mg Documented by: Cefepime HCl (Cefepime/Ns 1 Gm/100 Ml) 1 gm in 100 mls @ 200 mls/hr IV Q24H [facility]; Protocol Last Admin: 07/14/19 20:22 Dose: 200 mls/hr Documented by: Metoprolol Succinate (Metoprolol Xl) 100 mg PO QDAY [facility] Last Admin: 07/14/19 10:42 Dose: 100 mg Documented by: Ondansetron HCl (Zofran) 4 mg IV Q8H PRN PRN Reason: Nausea And Vomiting Oxycodone/Acetaminophen (Percocet 5/325) 1 tab PO Q6H PRN PRN Reason: Pain, Moderate (4-6) Sevelamer Carbonate (Renvela) 800 mg PO TIDWM [facility] Last Admin: 07/14/19 19:22 Dose: 800 mg Documented by: Sodium Chloride (Sodium Chloride Flush Syringe 10 Ml) 10 ml IV BID [facility] Last Admin: 07/14/19 21:54 Dose: 10 ml Documented by: Sodium Chloride (Sodium Chloride Flush Syringe 10 Ml) 10 ml IV PRN PRN PRN Reason: LINE FLUSH Physical Examination - Physical exam Narrative exam: Left elbow patient is noted to have a firm lobulated mass along the posterior aspect of the elbow there is no redness or swelling patient has good active and passive range of motion Eyes: PERRL ENT: Positive: clear oral mucosa Respiratory effort: normal Respiratory: bilateral: CTA Rhythm: regular Heart Sounds: Positive: S1 & S2 General gastrointestinal: Positive: soft, non-tender, non-distended, normal bowel sounds Integumentary: clear, warm, dry Neurologic: Positive: CNII-XII intact, moves all extremities, gait normal. Negative: focal deficits Assessment and Plan Left elbow swelling most likely gouty tophi patient denies pain Recommend observation at this point, if painful patient may have the mass removed otherwise we'll simply observe
[2019-07-15] MEDS: CINACALCET 30 MG TAB PO SCH (09:43)
[2019-07-15] MEDS: SEVELAMER CARBONATE 800 MG TAB PO SCH ×2 (09:43→13:18)
[2019-07-15] MEDS: METOPROLOL SUCCINATE XL 100 MG TAB PO SCH (09:44)
[2019-07-15] MEDS: dilTIAZem CD 300 MG CAP PO SCH (09:50)
--- NOTE | 2019-07-15 11:24 | Discharge Summary ---
Providers - Providers Date of Admission: 07/13/19 13:55 Attending physician: YONIS ROSSI MD 07/13/19 13:08 Consult to Physician [CONS] Urgent Comment: Consulting Provider: TOMMIE SNYDER Physician Instructions: Reason For Exam: ESRD on dialysis, chf 07/13/19 13:51 Consult to Physician [CONS] Routine Comment: Consulting Provider: ADONIS ARREAGA Physician Instructions: Reason For Exam: Elbow swelling 07/15/19 11:11 Consult to Physician [CONS] Routine Comment: Consulting Provider: TRUDY CHIRINOS Physician Instructions: Reason For Exam: AV FISTULAR Primary care physician: [employer] Hospitalization Reason for admission: Sepsis Condition: Stable Hospital course: 34-year-old male with end-stage renal disease on hemodialysis, hypertension, migraine headache, presents to ED for evaluation. Patient states that he heard a sudden pop in his left elbow this morning while getting out of the shower. Patient states that he shortly thereafter felt pain in his left elbow. Patient presented to outpatient surgery for permacatheter placement and was found to have left elbow swelling and tenderness and was instructed to seek further care at [facility] ED. Patient seen and evaluated in the emergency department. Lab and imaging studies reviewed. Patient found to have end-stage renal disease, metabolic acidosis, left elbow cellulitis, as well as right upper lobe pneumonia. Patient admitted to medical floor for medical stabilization due to increased risk of decompensation. Patient initiated on pneumonia protocol. Nephrology consulted in ED for urgent dialysis. Orthopedic surgery consulted in ED for left elbow cellulitis. Patient denies fever, chills, chest pain, palpitations, shortness of breath, bright red blood per rectum, productive cough, recent ill contacts, trauma to his left arm or elbow. No prior admission for review. All listed medication reconciled at time of admission. - Radiology Data IMPRESSION: Cardiomegaly and pulmonary venous congestion. Possible right upper lobe infiltrate. patient refusing further treatment, advised about xray although no fever also advised about plan for fistula creating in am, he refuses discharge to follow with nephrology and vascular outpatient. Notified team In the meantime patient continue treatment for presumed pneumonia with oral antibiotics on discharge Imaging study of upper extremity IMPRESSION: There is a large amorphous soft tissue calcification posterior to the olecranon measuring up to 6 x 4 cm. The bony structures are intact with no significant degenerative changes. No fracture or large joint effusion is suggested. Tophaceous gout Chronic calcific olecranon bursitis Assessment Sepsis present on admission secondary to pneumonia Pneumonia Left elbow cellulitis of abscess- likely gout or bursitis End stage renal disease Acute congestive heart failure likely systolic Polycystic Kidney diesease on HD TTS Anemia of Chronic Renal Failure Lactic acid Disposition: TO HOME OR SELFCARE Time spent for discharge: 35-minute Core Measure Documentation - Palliative Care Palliative Care/ Comfort Measures: Not Applicable - Core Measures Any of the following diagnoses?: none Exam - Physical Exam Narrative exam: VITAL SIGNS: Reviewed. GENERAL: The patient appears normally developed, sitting up in chair no acute distress vital signs as documented. HEAD: No signs of head trauma. EYES: Pupils are equal. Extraocular motions intact. EARS: Hearing grossly intact. MOUTH: Oropharynx is normal. NECK: No adenopathy, no JVD. CHEST: Chest with clear breath sounds bilaterally. No wheezes, rales, or rhonchi. CARDIAC: Regular rate and rhythm. S1 and S2, without murmurs, gallops, or rubs. VASCULAR: No Edema. Peripheral pulses normal and equal in all extremities. ABDOMEN: Soft, non tender and non distended. No rebound or guarding, and no masses palpated. Bowel Sounds normal. MUSCULOSKELETAL: Left elbow abscess. Limited left elbow ROM. Good range of motion of all major joints. Extremities without clubbing, cyanosis or edema. NEUROLOGIC EXAM: Alert and oriented x 3 No focal sensory or strength deficits. Speech normal. Follows commands. PSYCHIATRIC: Mood normal. SKIN: detail exam as documented in skin assessment - Constitutional Vitals: Temp Pulse Resp BP Pulse Ox 98.1 F 94 H 20 128/79 98 07/15/19 06:12 07/15/19 09:44 07/15/19 06:12 07/15/19 09:44 07/15/19 06:12 Plan Activity: advance as tolerated, fall precautions Diet: renal Special Instructions: record daily BP diary, record blood sugar diary Follow up with: PRIMARY MD DOLORES [Primary Care Provider] - 3-5 Days YONIS TINOCO MD [Staff Physician] - 7 Days RYAN DE LEÓN MD [Staff Physician] - 7 Days Prescriptions: levoFLOXacin [Levaquin TAB] 500 mg PO QDAY #7 tablet
[2019-07-15 13:00] VITALS: BP 126/81
== END 2019-07-15 14:41 | disposition home or self-care (01) | DRG 871 ==
LOC: ED 09:25 → EDSTATUS 10:30 → 3A 13:55
PROVIDERS: ADMIT Internal Medicine; ATTEND Internal Medicine
PROC: 5A1D70Z Performance of Urinary Filtration, Intermittent, Less than 6 Hours Per Day (ICD-10-PCS; principal; 2019-07-14)
DX: A41.9 Sepsis, unspecified organism (principal); J18.9 Pneumonia, unspecified organism; N18.6 End stage renal disease; I50.21 Acute systolic (congestive) heart failure; L03.114 Cellulitis of left upper limb; I13.2 Hypertensive heart and chronic kidney disease with heart failure and with stage 5 chronic kidney disease, or end stage renal disease; L02.414 Cutaneous abscess of left upper limb; Q61.3 Polycystic kidney, unspecified; N25.81 Secondary hyperparathyroidism of renal origin; G43.909 Migraine, unspecified, not intractable, without status migrainosus; D63.1 Anemia in chronic kidney disease; Z87.891 Personal history of nicotine dependence
CPT/HCPCS: 36415; 71045; 80048; 80074; 80076; 80202; 82140; 83735; 83880; 84550; 85025; 85027; 85610; 85730; 87040; G0378; J0456; J0690; J0692; J0696; J1200; J2270; J2405; J3370; J7030; J7040; J7050; J7512